=== PATIENT | female | born 1970 | race Caucasian/White ===

== ENCOUNTER 2020-12-10 05:57 | Day surgery (SDC) | payer OTHER ==
[2020-12-10] MEDS ORDERED: Lactated Ringers 1,000 ML IV SCH (06:30)
[2020-12-10] MEDS ORDERED: DIPRIVAN 200 MG/20 ML IV ONE ×3 (06:52→07:28)
[2020-12-10] MEDS ORDERED: Xylocaine-Mpf 2% 5 Ml Vial ONE (06:52)
[2020-12-10 08:11] VITALS: O2SAT 100
[2020-12-10 08:25] VITALS: BP 134/70; PULSE 64
--- NOTE | 2020-12-10 11:58 | OP ---
SURGERY DATE/TIME: 12/10/2020 0649 PREOPERATIVE DIAGNOSES: 1) Gastroesophageal reflux disease symptoms. 2) Screening colonoscopy. POSTOPERATIVE DIAGNOSES: 1) Moderate gastritis. 2) Normal colon but poor prep. PROCEDURES: 1) Esophagogastroduodenoscopy. 2) Colonoscopy. SURGEON: Dr. Raphael. ANESTHESIA: Medications were given by the anesthesia department. HISTORY: The patient is a 50 year old white female presenting now with long history of epigastric pain. The patient is not currently taking any medication for gastritis but due to the duration issue, the patient is felt to need have endoscopic evaluation and at age 50 she is also here for screening colonoscopy. The patient was appraised of the risks of the procedure including the risk of perforation, phlebitis, untoward reaction to medication, sore throat and missed lesions. The patient verbalized her understanding and desired to have the procedure performed. DESCRIPTION OF PROCEDURE: The patient was given the medications by the anesthesia department. She had continuous pulse oximetry, ECG monitoring, intermittent blood pressure monitoring and tidal CO2 monitoring during the examination. She was placed in the left lateral decubitus position. A bite block was placed. The flexible Olympus gastroscope was used to intubate the oropharynx. A view of the esophagus was developed and normal throughout its length. The stomach was entered where normal gastric rugal folds were seen. However there was noted to be patchy erythema throughout the stomach. No erosions or ulcerations however were encountered. The pylorus encountered and intubated. The duodenum inspected and found to be normal. The scope is withdrawn towards the stomach and retroflex view was obtained of the lesser curvature, fundus and cardia regions of the stomach and these appeared to be essentially normal. The scope was then redirected towards the gastric antrum and biopsies were obtained to rule out the presence of Helicobacter pylori-type organism. The scope was then removed from the patient. Next, a digital rectal examination was performed and revealed normal anal sphincter tone and no masses. The flexible Olympus pediatric colonoscope was used to intubate the rectum. A view of the colon was developed sequentially to the ascending colon and down in the cecum however was full of pasty stool. We were unable to completely evacuate the stool to adequately evaluate the cecum. Upon insertion and withdrawal, including a retroflex view in the rectum, no other mucosal lesions were noted. The scope was removed from the patient who tolerated the procedure well and was sent back to OP recovery in good condition. The prep was noted to be poor.
== END 2020-12-10 08:25 | disposition home or self-care (01) ==
LOC: SDC 05:57
PROVIDERS: ATTEND Family Medicine
DX: Z12.11 Encounter for screening for malignant neoplasm of colon (principal); K29.70 Gastritis, unspecified, without bleeding; Z79.899 Other long term (current) drug therapy
CPT/HCPCS: 88305; J2704

== ENCOUNTER 2021-07-31 06:04 | Observation (INO) | payer OTHER ==
--- NOTE | 2021-07-30 08:38 | HP ---
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 She has a 2 cm right thyroid nodule by Dr. Phipps. 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 PAST SURGICAL HISTORY: D&C. Bladder surgery when she was 7 years old. Double mastectomy with thigh flap replacement. MEDICATIONS: The patient has been on liquid vitamin C, vitamin D, vitamin B, has been on iron and multivitamins. ALLERGIES: SULFA. ALPHA GAL-MAMMAL DNA. FAMILY HISTORY: Cancer, diabetes, ovarian cancer, heart disease. SOCIAL HISTORY: No smoking or alcohol use. REVIEW OF SYSTEMS: Fourteen systems reviewed pertinent for as noted above. No chest pain or palpitations. Pertinent for increased swelling, sensations and some calcifications in the hard nodule difficult to penetrate. Negative or noncontributory as above and per preadmission questionnaire. PHYSICAL EXAMINATION: GENERAL: No acute distress. HEENT: Sclerae nonicteric. 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 It is increasingly symptomatic. Otherwise no JVD. Trachea midline. CHEST: Breath sounds symmetrical. CVS: Regular rate and rhythm. ABDOMEN: Soft. EXTREMITIES: No cyanosis. NEURO: Alert, moving extremities symmetrically. PSYCH: Appropriate mood and affect. IMPRESSION: Large right thyroid nodule and had some calcifications making it difficult to penetrate fully. There is also needle biopsy showing obvious malignancy but given the characteristics and her symptoms, Dr. Phipps has referred her for right thyroid lobectomy. Risk of the procedure of right lobectomy with frozen section if available, possible total thyroidectomy or lymph node dissection depending on operative findings. Risks explained to the patient in detail including but not limited to bleeding and infection, risk of hematoma or seroma formation, risk of hypoparathyroidism, risk of possible aches, pains or dysphasia. Risk of superior laryngeal nerve irritation, scar formation or injury with risk of subtle changes or hoarseness transient or snf with remote risk of bilateral dysfunction, risk of stridor possibly requiring tracheostomy, vocal cord injection down the road. She understands. Will proceed with right thyroid lobectomy with frozen section if available accomplished. Total thyroidectomy or lymph node in same operative setting. We will await final pathologic evaluation. Small risk of possibly recommending a completion thyroidectomy at a later date. General risk of anesthesia, deep vein thrombosis, pulmonary embolism, pneumonia but not limited to. She had some nausea and sensitivity which she lists as an alpha gal-mammal DNA issue. She also has a sulfa sensitivity. She accepts the risks and agrees to the planned procedure. Will proceed with thyroid lobectomy and possible frozen section if available, possible total thyroidectomy depending on pathology findings.
[2021-07-31] MEDS ORDERED: LACTATED RINGERS IV ONE (06:05)
[2021-07-31] MEDS ORDERED: PROPOFOL IV ONE (06:05)
[2021-07-31] MEDS ORDERED: Propofol 1000 mg/100 ml Bottle IV ONE (06:05)
[2021-07-31] MEDS ORDERED: Transderm Scop 1.5MG Patch TOP PRN (06:17)
[2021-07-31] MEDS ORDERED: Reglan 10 MG/2 ML IV ONE (06:17)
[2021-07-31] MEDS ORDERED: Pepcid 20 MG VIAL IV ONE (06:17)
[2021-07-31] MEDS: Lactated Ringers 1,000 ML IV SCH (06:47)
[2021-07-31 07:10] LABS: Hematocrit 37.8 % (35-47); Hemoglobin 12.4 gm/dl (12.0-16.0); Mean Cell Volume 101.6 fl (78-100); Mean Corpuscular Hemoglobin 33.3 pg (26-32); Mean Corpuscular Hgb Concent. 32.8 g/dl (32-36); Mean Platelet Volume 12.4 fl (7.5-11.0); Platelet Count 151 K/mm3 (150-450); Red Blood Count 3.72 M/mm3 (4.1-5.4); Red Cell Distribution Width 12.2 % (11.5-14.0); White Blood Count 3.6 K/mm3 (4.0-10.5)
[2021-07-31] MEDS ORDERED: Versed 2 MG/2 ML Injection ONE (07:13)
[2021-07-31] MEDS ORDERED: Sensorcaine 0.25% 10 ML ONE (07:17)
[2021-07-31] MEDS ORDERED: Lactated Ringers 2,000 ML IV ONE (07:17)
[2021-07-31 07:50] LABS: INFLUENZA A NEGATIVE (NEGATIVE); INFLUENZA B NEGATIVE (NEGATIVE); RESPIRATORY SYNCTIAL VIRUS NEGATIVE (Negative); SARS-CoV-2 Xpert Express NEGATIVE (NEGATIVE)
[2021-07-31] MEDS ORDERED: Quelicin Fliptop 200 MG/10 ML ONE (07:50)
[2021-07-31] MEDS ORDERED: KEFZOL 1 GM ONE (07:55)
[2021-07-31] MEDS ORDERED: Decadron 4 MG INJ ONE (07:57)
[2021-07-31 08:28] LABS: ALBUMIN 4.1 g/dL (3.5-5.0); ALKALINE PHOSPHATASE 91 U/L (38-126); ANION GAP 12.6 MEQ/L (5-15); BLOOD UREA NITROGEN 12 mg/dL (7-17); CHLORIDE 108 mmol/L (98-107); Calcium 9.3 mg/dL (8.4-10.2); Carbon Dioxide 24 mmol/L (22-30); Creatinine 1 0.57 mg/dL (0.52-1.04); EST GLOMERULAR FILTRATION RATE > 60.0 ML/MIN; FREE TRIODOTHYRONINE 3.86 pg/mL (2.77-5.27); Glucose 94 mg/dL (74-106); SGOT/AST 29 U/L (14-36); SGPT/ALT 17 U/L (0-35); SODIUM 141 mmol/L (137-145); Total Protein 6.9 g/dL (6.3-8.2)
[2021-07-31] MEDS ORDERED: Zofran 4 MG/2 ML VIAL ONE (09:28)
[2021-07-31] MEDS ORDERED: OFIRMEV 100 ML IV ONE (09:51)
[2021-07-31] MEDS ORDERED: TORAdol 30 mg Injection ONE (09:58)
[2021-07-31] MEDS ORDERED: SUBLIMAZE 100 MCG/2 ML ONE (09:58)
[2021-07-31] MEDS ORDERED: MEDICATION INTERVENTION MC SCH (11:15)
--- NOTE | 2021-07-31 11:20 | OP ---
SURGERY DATE/TIME: 07/31/2021 0731 PREOPERATIVE DIAGNOSIS: Large right thyroid nodule, benign by biopsy but on the little bit firmer side, some increased symptoms of swelling on this side of her neck. She is in need for right hemithyroidectomy. POSTOPERATIVE DIAGNOSIS: Large right thyroid nodule, benign by biopsy but on the little bit firmer side, some increased symptoms of swelling on this side of her neck. She is in need for right hemithyroidectomy. Final path pending. PROCEDURES: Right thyroid lobectomy with isthmusectomy. SURGEON: Dr. Luis F Causey. ASSISANT: Dr. Pradeep Myers. ANESTHESIA: General. ESTIMATED BLOOD LOSS: Minimal. INDICATIONS: As noted above. Risks and benefits explained in detail and not limited to, including the overall risk of voice changes or hoarseness, possibility of malignancy possibly requiring completion thyroidectomy at a later date. General risk of aches, pains, hematoma, seroma but not limited to, risk of hypoparathyroidism possibly requiring mcfp high calcium supplementation. Consent was obtained. DESCRIPTION OF PROCEDURE AND FINDINGS: The patient is taken to the operating room. General anesthesia induced, with continuous NIM's monitoring and tracheal tube placed per anesthesia. The patient was positioned with roll behind the shoulders and extended. Prepped and draped in usual sterile fashion. After official time out and no disagreement with planned procedure, a transverse incision made. She has a fairly long neck so it was necessary to make a transverse incision up a little bit higher. Dissection carried down through platysma. Strap muscles in the midline and retracted over. The left side is carefully inspected. Little, tiny nodules on that side. It looked like a very nice, normal gland overall. No signs of any large nodules or any suspicious findings. The right side however was on the edematous side. It was enlarged. Slowly and carefully staying directly on the capsule, little thyroid veins taken down and ligated with aid of LigaSure device. Staying directly on the capsule inferior pole and superior pole vessels were slowly and carefully taken directly on the capsule layer by layer with the aid of clips and dividing staying directly on the capsule itself slowly and carefully. The large nodule was deep in the lobe upper pole of the right thyroid lobe. Slowly and carefully staying directly on the capsule visualizing superior parathyroid gland and was carefully protected out laterally again staying directly on the gland, the small vessels were slowly and carefully isolated, clipped and divided. There was another nodule a little more posterior laterally, carefully staying on this nodule. We slowly and carefully mobilized over the area it was felt the recurrent laryngeal nerve branches would be, NIM's monitoring did not seem to be working correctly. Again, completely stayed directly on the capsule slowly mobilizing appendage to the thyroid upwards including with the gland carefully leading out laterally what appeared to be the superior-inferior parathyroid glands were carefully protected this is carefully mobilized up the anterior trachea taking residual anterior pole veins as necessary directly on the capsule. The specimen is passed off. There did not appear to be any extrusion through the capsule or the nodule, deep in the middle of the upper pole. There is no palpable visible adenopathy around the area. Again, the left side looked unremarkable. It was felt that it is not warranted to take the side at this time. Because of logistics, it was probably going to be 50 minutes to an hour to get a frozen section back, it was not warranted to keep the patient under anesthetic that long. It was felt it would be best to go ahead and close. As our NIM's monitor had not worked as it usually does, it was felt best to wait for final permanent section. CANDACE drain is placed a small, little 1 cm/sq with Surgicel left in place. The 7 flat CANDACE drain through stab wound secured with Prolene suture. Good hemostasis was noted. The case was then completely dry throughout the procedure. Strap muscle closed with 2-0 Vicryl. Platysmas closed with 3-0 Vicryl. Skin closed with 4-0 Vicryl. Steri-Strips and sterile dressing applied. CANDACE secured with Prolene suture and placed to bulb suction. There were no immediate complications. The monitoring system did not appear to be working correctly. The parathyroid was visualized and protected and stayed directly on the capsule throughout the entire case and a very dry case, slow careful dissection. Findings were discussed with the family out in the waiting area, including the logistics of frozen section would be better to wait for permanent section rather than keep her on anesthetic for another hour. They understood the small chance if it came back carcinoma at a later date, would then need to consider return for completion thyroidectomy but at this time it does not make sense to keep the patient under anesthetic that much longer. Otherwise, will observe her and follow with some calcium and likely hopefully be able to go home within a day.
[2021-07-31] MEDS ORDERED: Sodium Chloride 0.9% 1000 ML 1,000 ML IV SCH (11:30)
[2021-07-31] MEDS ORDERED: Zofran 4 MG/2 ML VIAL IV PRN (11:31)
[2021-07-31] MEDS ORDERED: SUBLIMAZE 100 MCG/2 ML IV PRN (11:32)
[2021-07-31] MEDS ORDERED: ULTRAM 50 MG PO PRN (11:33)
[2021-07-31] MEDS ORDERED: TYLENOL 325 MG PO PRN (11:33)
[2021-07-31] MEDS: VITAMIN D PO SCH (13:38)
[2021-07-31] MEDS: FEOSOL 325 MG PO SCH (13:38)
[2021-07-31] MEDS: VITA-BEE WITH C PO SCH (13:38)
[2021-07-31] MEDS: THERAGRAN MULTIVITAMIN PO SCH (13:38)
[2021-07-31 15:49] LABS: Bacteria MODERATE /HPF (NEGATIVE); Epithelial Cells RARE /HPF (FEW); Mucus SLIGHT /HPF (NEGATIVE)
[2021-07-31 15:51] LABS: Appearance CLOUDY (CLEAR); Glucose NEGATIVE (NEGATIVE); Ketones NEGATIVE (NEGATIVE); Leukocyte Esterase TRACE (NEGATIVE); Nitrite POSITIVE (NEGATIVE); Ph 5.5 (5-6); Protein,Urine Dip NEGATIVE (Negative); Specific Gravity >=1.030 (1.005-1.025); Urobilinogen 0.2 mg/dL (0-1)
[2021-07-31 15:52] LABS: Bilirubin NEGATIVE (NEGATIVE); Blood MODERATE Ery/ul (0-5)
[2021-08-01] MEDS: Lactated Ringers 1,000 ML IV SCH (08:25)
[2021-08-01 08:42] VITALS: BP 118/72; PULSE 60; O2SAT 98
[2021-08-01] MEDS: THERAGRAN MULTIVITAMIN PO SCH ×2 (09:14→09:24)
[2021-08-01] MEDS: FEOSOL 325 MG PO SCH ×2 (09:14→09:23)
[2021-08-01] MEDS: VITAMIN D PO SCH (09:14)
[2021-08-01] MEDS: VITA-BEE WITH C PO SCH ×2 (09:15→09:24)
[2021-08-01] MEDS ORDERED: VITAMIN D PO SCH (10:00)
[2021-08-01] MEDS ORDERED: NON-FORMULARY ITEM (Vitamin B Complex [Vitamin B Complex] 1 EACH Tablet) PO SCH (10:00)
[2021-08-01] MEDS ORDERED: ASCORBATE CALCIUM SODIUM PO SCH (10:00)
[2021-08-01] MEDS ORDERED: [UNRECOGNIZED DRUG - OTHER] PO SCH (10:00)
[2021-08-01] MEDS ORDERED: VIT C PO SCH (10:00)
[2021-08-01] MEDS ORDERED: NON-FORMULARY ITEM (Multivitamin [Multivitamins] 1 EACH Tablet) PO SCH (10:00)
== END 2021-08-01 10:47 | disposition home or self-care (01) ==
LOC: MED SURG 06:04 → EDSTATUS 14:04
PROVIDERS: ADMIT Family Medicine; ATTEND Surgery
DX: E04.9 Nontoxic goiter, unspecified (principal); Z85.3 Personal history of malignant neoplasm of breast; Z80.9 Family history of malignant neoplasm, unspecified
CPT/HCPCS: 0241U; 36415; 60225; 80053; 81001; 82310; 84439; 84443; 84481; 85027; 87077; 87086; 87186; G0378; J0330; J0690; J1100; J1885; J2250; J2405; J2704; J3010; A9270-GY